=== PATIENT | male | born 1995 | race African-American/Black ===

== ENCOUNTER 2017-01-28 12:42 | Emergency (ER) | payer BC ==
[~2017-01-28] VITALS: Ht 185.4 cm; Wt 89.3 kg
--- NOTE | ~2017-01-28 | CR72 ---
[facility] A Service of [facility] & [facility] RADIOLOGY TEXT RESULTS PATIENT: HEATHER NESBITT LOCATION: [facility] : 95 UNIT #: [id number] AGE: [address]: Parish Howard MD SEX: M ORDER DR: [id number] [facility] [address] [place], [place] [address] [id number] MR#: [id number] Acc #: [id number] NAME: HEATHER NESBITT : 1995 SEX: M STUDY DATE/TIME: 01/28/2017 13:31 UNIT: [facility] ROOM: STUDY DESCRIPTION: CR Chest Single View Portable Attending Physician: Parish Howard M.D. Ordering Physician: Parish Howard M.D. Primary Care Physician: Darrell Jamison M.D. MEDICAL IMAGING REPORT This report is preliminary unless electronic signature is present EXAM Portable chest HISTORY Shortness of air, cough, runny nose for 3 days. COMPARISON: 04/03/2016. FINDINGS Normal AP portable chest report. Dictated by... Janet Nesbitt M.D. THIS IS AN ELECTRONICALLY VERIFIED REPORT Janet Nesbitt M.D. at 01/29/2017 10:03 AM Anand TD: 01/29/2017 08:54 JOB #: [id number] MEDICAL IMAGING REPORT Page 1 of 1 COPY
[~2017-01-28 12:42] MED LIST: ALBUTEROL17 GM INH
== END 2017-01-28 14:59 | disposition home or self-care (01) ==
LOC: CED 12:42
DX: J45.909 Unspecified asthma, uncomplicated (principal)
CPT/HCPCS: 71010; 94640; 99285